=== PATIENT | female | born 1990 | race Caucasian/White ===

== ENCOUNTER 2021-05-21 03:03 | Emergency (ER) | payer BC ==
[~2021-05-21] VITALS: Ht 165.1 cm; Wt 81.8 kg
[2021-05-21] MEDS ORDERED: ONDANSETRON ODT 4 MG TAB.RAPDIS PO ONE (03:15)
[2021-05-21] MEDS ORDERED: METOCLOPRAMIDE HCL 10 MG/2 ML VIAL. IM ONE (03:15)
--- NOTE | 2021-05-21 03:15 | PHYS DOC ---
Adult General Chief Complaint Chief Complaint: NAUSEA/VOMITING/DIARRHEA HPI HPI Patient is a 30-year-old female presents with nausea, vomiting and diarrhea for the last day. States that her children had the same thing over the last week but has not resolved and it appears she may have picked up what ever it is at that he had. States her start with some nausea and then vomiting about three or 4 hours ago and then she had a couple of watery stools over the last hour. Denies any recent travels, traumas, illnesses, fevers, chest pain, shortness of breath, abdominal pain, dysuria, hematuria, blood in the stool. States she is able to drink some fluids while she drinks it slow but had not tried to eat over the last few hours because of the nausea. Review of Systems Review of Systems Review of systems otherwise unremarkable except noted in HPI Physical Exam Physical Exam Constitutional: Well developed, well nourished, no acute distress, non-toxic appearance. [] HENT: Normocephalic, atraumatic, bilateral external ears normal, oropharynx moist, no oral exudates, nose normal. [] Eyes: conjunctiva normal, no discharge. [] Neck: Normal range of motion, no tenderness, supple, no stridor. [] Cardiovascular:Heart rate regular rhythm, no murmur [] Lungs & Thorax: Bilateral breath sounds clear to auscultation [] Abdomen: soft, no tenderness, no masses, no pulsatile masses. [] Skin: Warm, dry, no erythema, no rash. [] Back: no CVA tenderness. [] Extremities: No tenderness, ROM intact, no edema. [] Neurologic: Alert and oriented X 3, no focal deficits noted. [] Psychologic: Affect normal, judgement normal, mood normal. [] EKG EKG [] Radiology/Procedures Radiology/Procedures [] Heart Score C/O Chest Pain: No Risk Factors: Risk Factors: DM, Current or recent (<one month) smoker, HTN, HLP, family history of CAD, obesity. Risk Scores: Risk Factors: DM, Current or recent (<one month) smoker, HTN, HLP, family history of CAD, obesity. Course & Med Decision Making Course & Med Decision Making Patient is a 30-year-old female presents with nausea, vomiting and diarrhea Vital signs . Physical exam noted above. Patient given nausea medicine x2. On reassessment patient symptoms resolved and able to take p.o. Discussed symptomatic treatment at home. Given nausea medicine for home. Discussed diet over the next couple of days should probably clear in light. Advised to follow-up on Saturday with primary care physician. Gave return precautions to the ED. Patient grateful, verbalized understanding and agreed with plan of discharge. [] Dragon Disclaimer Dragon Disclaimer This electronic medical record was generated, in whole or in part, using a voice recognition dictation system. Departure Departure: Impression: Primary Impression: Nausea vomiting and diarrhea Disposition: HOME / SELF CARE / HOMELESS Condition: GOOD Referrals: SHARA IVERSON DO (PCP) Patient Instructions: Diarrhea, Nausea and Vomiting Additional Instructions: Thank you for coming into the emergency department tonight and allowing us to take care of you. Please read the attached information carefully to go back over some of the things we discussed. Over the next 2 days eat a light clear diet as we discussed and drink plenty of fluids. Please take your nausea medicine as prescribed and as needed. Please follow-up with your primary care physician first thing Saturday morning to update on your ED visit and set up a follow-up visit. Please come back with new or concerning symptoms as discussed. Scripts Ondansetron Hcl (ZOFRAN) 4 Mg Tablet 1 TAB PO PRN Q6HRS PRN for NAUSEA, #10 TAB Prov: SENIA CAO MD 05/21/21 SENIA CAO MD May 21, 2021 03:15
[2021-05-21] MEDS ORDERED: ONDA4TAB7 PO (03:25)
[2021-05-21 03:43] LABS: BILIRUBIN,URINE SMALL (NEG); CLARITY,URINE HAZY; COLOR,URINE YELLOW; GLUCOSE,URINE NEG (NEG)
[2021-05-21 03:44] LABS: BACTERIA,URINE FEW /HPF (0-FEW); NITRITE,URINE NEG (NEG); RBC,URINE 0 /HPF (0-2); SQUAMOUS EPITHELIAL CELL,UR MOD /LPF; UROBILINOGEN,URINE 0.2 mg/dL (0.2 mg/dL)
[2021-05-21 04:00] VITALS: BP 128/82
[2021-05-21] MEDS ORDERED: LOPERAMIDE 2 MG CAPSULE PO ONE ×2 (04:01→04:15)
== END 2021-05-21 04:10 | disposition home or self-care (01) ==
LOC: ER 03:03
DX: R11.2 Nausea with vomiting, unspecified (principal); R19.7 Diarrhea, unspecified
CPT/HCPCS: 81001; 81025; 87086; 96372; 99283; J2765; Q0162